=== PATIENT | male | born 1995 | race Caucasian/White ===

== ENCOUNTER 2022-06-09 08:45 | Outpatient (RCR) | payer OTHER, SELFPAY ==
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
== END 2022-06-09 16:27 | disposition home or self-care (01) ==
PROVIDERS: Visit Provider Orthopaedic Surgery Sports Medicine
DX: M24.822 Other specific joint derangements of left elbow, not elsewhere classified (principal); Z51.89 Encounter for other specified aftercare
CPT/HCPCS: 97110; 97140; 97165; X5282

== ENCOUNTER 2023-07-14 09:28 | Outpatient (CLI) | payer OTHER, SELFPAY | END 2023-07-14 09:29 | disposition home or self-care (01) | LOC: NFLDREF 09:28 | PROVIDERS: PCP Family Medicine; Visit Provider Family Medicine | DX: L20.82 Flexural eczema (principal); Z79.899 Other long term (current) drug therapy | CPT/HCPCS: 80053 ==

== ENCOUNTER 2024-07-17 13:51 | Outpatient (CLI) | payer BC, SELFPAY | END 2024-07-17 13:52 | disposition home or self-care (01) | LOC: NFLDREF 07-24 00:44 | PROVIDERS: PCP Family Medicine; Referring Provider Family Medicine; Visit Provider Podiatrist | DX: B35.1 Tinea unguium (principal) | CPT/HCPCS: 80076 ==

== ENCOUNTER 2024-08-31 08:04 | Outpatient (CLI) | payer BC, SELFPAY | END 2024-08-31 08:05 | disposition home or self-care (01) | LOC: NFLDREF 09-03 08:41 | PROVIDERS: PCP Family Medicine; Referring Provider Family Medicine; Visit Provider Podiatrist | DX: B35.1 Tinea unguium (principal) | CPT/HCPCS: 82247; 84450; 84460 ==

== ENCOUNTER 2024-08-31 16:06 | Outpatient (CLI) | payer BC, SELFPAY ==
--- NOTE | 2024-08-31 16:00 | CRLHL7_ITS ---
For Patients: As a result of the Century Cures Act, medical imaging exams and procedure reports are released immediately into your electronic medical record. You may view this report before your referring provider. If you have questions, please contact your health care provider. INDICATION: Right testicular pain COMPARISON: none TECHNIQUE: Rosado scale imaging was performed of the scrotum. In addition color Doppler and spectral Doppler analysis was performed of the testes. FINDINGS: The testes demonstrate normal arterial and venous blood flow on color Doppler and spectral Doppler analysis. The testes have uniform echogenicity with no evidence of a suspicious mass or area of inflammation. The right testis measures 3.9 x 2.3 x 2.7 cm in size and the left testis measures 4.5 x 2.1 x 2.9 cm. Left epididymal head cyst is present measuring 5 x 4 x 5 millimeters. Normal right epididymis there is no evidence of a hydrocele or varicocele. IMPRESSION: No evidence of torsion or inflammation. No varicocele. Incidental left epididymal head cyst measures 5 millimeters. Dictated by Luis Castro MD @ 09/01/2024 10:12:27 AM (Electronically Signed)
== END 2024-08-31 16:07 | disposition home or self-care (01) ==
LOC: NPINS 16:07
PROVIDERS: PCP Family Medicine; Visit Provider Registered Nurse
DX: N50.811 Right testicular pain (principal); L72.0 Epidermal cyst
CPT/HCPCS: 76870; 93976

== ENCOUNTER 2025-05-31 08:10 | Outpatient (CLI) | payer BC, SELFPAY | END 2025-05-31 08:11 | disposition home or self-care (01) | LOC: NFLDREF 06-05 18:51 | PROVIDERS: PCP Family Medicine; Referring Provider Family Medicine; Visit Provider Family Medicine | DX: E78.019 Familial hypercholesterolemia, unspecified (principal) | CPT/HCPCS: 80061 ==